=== PATIENT | male | born 1970 | race Caucasian/White ===

== ENCOUNTER → 2021-07-07 | Outpatient (CLI) | payer BC ==
--- NOTE | 2021-07-07 17:47 | CONS ---
CONSULTATION DATE OF SERVICE: 07/07/2021 This 50-year-old gentleman has been evaluated [facility] for possible obstructive sleep apnea-hypopnea syndrome. HISTORY OF PRESENT ILLNESS/SLEEP-WAKE EVALUATION: Patient's usual sleep schedule is from 9:30 p.m. to 6 a.m. on weekdays and from 11 p.m. to 8 a.m. on weekends. No problems with falling asleep, although he has a TV set in the bedroom. He usually sleeps on the side position. According to his , he has severe snoring and witnessed episodes of stopped breathing during sleep. In the morning the patient wakes up tired. [place] Sleepiness Scale is 5. The patient usually does not take any naps. No history of hypnagogic hallucinations, sleep paralysis or cataplexy. PAST MEDICAL HISTORY: Positive for hypertension, hyperlipidemia, rhinitis, allergies. PAST SURGICAL HISTORY: Only colonoscopy, which found one benign polyp. MEDICATIONS: 1. Lisinopril 20 mg once a day. 2. Atorvastatin 10 mg once a day. 3. Loratadine 10 mg once a day. 4. Fluticasone 50 mcg. SOCIAL HISTORY: Negative for smoking. Alcohol consumption occasional. FAMILY HISTORY: Sleep apnea, snoring, hypertension, hyperlipidemia. REVIEW OF SYSTEMS: Awakenings from sleep with nocturia, snoring. No fevers. No double vision. No recent chest pain. No shortness of breath. No abdominal pain. No bleeding episodes. No blood in the urine. No seizure episodes. PHYSICAL EXAMINATION: GENERAL: Pleasant gentleman without distress. VITAL SIGNS: BP 149/91, HR 82, RR 16, height 5 feet 10 inches, weight 242.8 pounds, body mass index 34.7, temperature 97.2, oxygen saturation at room air 97%. HEENT: PERRLA, EOMI, evaluation of oropharynx showed tongue protrudes midline. Low position of soft palate; Mallampati III. Wide pillars. NECK: Supple, no JVD. Thyroid is not palpable. Wide neck; 18-1/4 inches in circumference. LUNGS: Clear to percussion and to auscultation. Good air exchange. No wheezing or rhonchi. HEART: S1, S2 regular. No murmurs, gallops, or rubs. ABDOMEN: Slightly obese. EXTREMITIES: No clubbing or cyanosis. EMERGING SOLUTIONS EXECUTIVE: Awake, alert, and oriented X3. Cranial nerves 2 to 7 intact. There is no fasciculation or atrophy. noted. No focal deficits observed. IMPRESSION: 1. Loud snoring, witnessed episodes of stopped breathing during sleep, small oropharyngeal air space, Mallampati III, wide neck, 18-1/4 inches in circumference; obstructive sleep apnea-hypopnea syndrome. 2. Hypertension. 3. Hyperlipidemia. 4. Allergies. 5. Rhinitis. PLAN: 1. Home sleep study for evaluation of patient's breathing during sleep. 2. CPAP/BiPAP titration if sleep study confirms obstructive sleep apnea-hypopnea syndrome. 3. Preferable position during sleep on the side. 4. No driving if patient feels any sleepiness. 5. I will see patient for follow up visit to explain results of testing and following plan. Thank you very much for referring this patient for consultation. Sincerely, Grady Rivero MD, PhD, FAASM Diplomat of [employer] Sleep [facility] [employer] Assistant [facility] [place] MMODL / ELN: [id number] /
== END ==
LOC: SLEEP 16:10
PROVIDERS: ATTEND Internal Medicine
DX: G47.33 Obstructive sleep apnea (adult) (pediatric) (principal); I10 Essential (primary) hypertension; E78.5 Hyperlipidemia, unspecified; J31.0 Chronic rhinitis; T78.40XA Allergy, unspecified, initial encounter
CPT/HCPCS: 99202